=== PATIENT | female | born 1970 | race Caucasian/White ===

== ENCOUNTER 2018-11-01 21:00 | Emergency (ER) | payer BC ==
[~2018-11-01] VITALS: Ht 154.9 cm; Wt 60.3 kg
--- NOTE | 2018-11-01 21:42 | ED Abdominal Pain ---
General Chief Complaint: Abdominal/GI Problems Stated Complaint: ABD PAIN Nursing Triage Note: ABDOMINAL PAIN N/V Sepsis Screen: Possible Sepsis Risk Source of Information: Patient Exam Limitations: No Limitations History of Present Illness Date Seen by Provider: Nov 01, 2018 Time Seen by Provider: 21:40 Initial Comments To ER withm periumbilical abdominal pain. This began this morning when she went to work. She then ate some fruit and thought she might of had bad fruit because she began vomiting. She went home, and the abdominal pain increased. The periumbilical abdominal pain is now rated at 8 out of 10, the nausea and vomiting has been persistent since about 2 PM today. She is also not had a bowel movement in a couple of days. She is noted to be febrile at 100.7 on arrival and hypotensive at 91/69. History of cholecystectomy but no other abdominal operations. No known comorbidities. Timing/Duration: 12 Hours Severity/Quality: Moderate Location: Periumbilical Radiation: No Radiation Activities at Onset: None Associated Symptoms: Nausea/Vomiting Allergies and Home Medications Allergies Coded Allergies: No Allergy Information Available (Unverified , 05/12/15) Home Medications No Active Prescriptions or Reported Meds Patient Home Medication List Home Medication List Reviewed: Yes Review of Systems Review of Systems Constitutional: see HPI, chills, fever, malaise EENTM: No Symptoms Reported Respiratory: No Symptoms Reported Cardiovascular: No Symptoms Reported Gastrointestinal: See HPI, Abdominal Pain Genitourinary: No Symptoms Reported Musculoskeletal: no symptoms reported Skin: no symptoms reported Psychiatric/Neurological: No Symptoms Reported Endocrine: No Symptoms Reported Past Ceoxmqr-Noduqt-Tfkklb Hx Patient Social History Alcohol Use: Rarely Uses Recreational Drug Use: No Smoking Status: Never a Smoker 2nd Hand Smoke Exposure: No Recent Foreign Travel: No Contact w/Someone Who Travel: No Recent Infectious Disease Expo: No Recent Hopitalizations: No Immunizations Up To Date Tetanus Booster (TDap): Unknown Seasonal Allergies Seasonal Allergies: No Past Medical History Surgeries: Yes (LITHOTRIPSY, BUNIONECTOMY, NECK FUSION.) Abdominal, Gallbladder, Orthopedic Respiratory: No Cardiac: No Neurological: No : No PIG CASTER History: IUD Genitourinary: Yes Kidney Stones Gastrointestinal: No Musculoskeletal: No Endocrine: Yes Hypothyroidsim HEENT: No Cancer: No Psychosocial: No Integumentary: No Blood Disorders: No Physical Exam Vital Signs Vital Signs - First Documented 11/01/18 21:17 Temp 100.1 Pulse 117 Resp 18 B/P (MAP) 91/69 (76) Pulse Ox 97 O2 Delivery Room Air Capillary Refill : Less Than 3 Seconds Height/Weight/BMI Height: 5'1.00" Weight: 133lbs. oz. 60.555463ml; BMI Method:Stated General Appearance: WD/WN, no apparent distress HEENT: PERRL/EOMI, normal ENT inspection Neck: non-tender, full range of motion Respiratory: no respiratory distress, no accessory muscle use Cardiovascular: no murmur, tachycardia Gastrointestinal: normal bowel sounds, soft, tenderness (diffuse) Extremities: normal range of motion, non-tender Neurologic/Psychiatric: alert, normal mood/affect, oriented x 3 Skin: normal color, warm/dry Focused Exam Lactate Level 11/01/18 21:35: Lactic Acid Level 0.87 Lactic Acid Level Laboratory Tests Test 11/01/18 21:35 Lactic Acid Level 0.87 MMOL/L (0.50-2.00) Progress/Results/Core Measures Results/Orders Lab Results Laboratory Tests Test 11/01/18 21:22 11/01/18 21:35 Range/Units Urine Color YELLOW Urine Clarity CLEAR Urine pH 7 5-9 Urine Specific [place] 1.010 L 1.016-1.022 Urine Protein 1+ H NEGATIVE Urine Glucose (UA) NEGATIVE NEGATIVE Urine Ketones 4+ H NEGATIVE Urine Nitrite NEGATIVE NEGATIVE Urine Bilirubin 1+ H NEGATIVE Urine Urobilinogen 1 NORMAL MG/DL Urine Leukocyte Esterase 1+ H NEGATIVE Urine RBC (Auto) 1+ H NEGATIVE Urine RBC 2-5 H /HPF Urine WBC 2-5 /HPF Urine Squamous Epithelial Cells 5-10 /HPF Urine Crystals NONE /LPF Urine Bacteria TRACE /HPF Urine Casts NONE /LPF Urine Mucus LARGE H /LPF Urine Culture Indicated NO White Blood Count 15.8 H 4.3-11.0 10^3/uL Red Blood Count 4.85 4.35-5.85 10^6/uL Hemoglobin 15.2 11.5-16.0 G/DL Hematocrit 44 35-52 % Mean Corpuscular Volume 90 80-99 FL Mean Corpuscular Hemoglobin 31 25-34 PG Mean Corpuscular Hemoglobin Concent 35 32-36 G/DL Red Cell Distribution Width 13.7 10.0-14.5 % Platelet Count 234 130-400 10^3/uL Mean Platelet Volume 10.4 7.4-10.4 FL Neutrophils (%) (Auto) 93 H 42-75 % Lymphocytes (%) (Auto) 3 L 12-44 % Monocytes (%) (Auto) 4 0-12 % Eosinophils (%) (Auto) 0 0-10 % Basophils (%) (Auto) 0 0-10 % Neutrophils # (Auto) 14.6 H 1.8-7.8 X 10^3 Lymphocytes # (Auto) 0.5 L 1.0-4.0 X 10^3 Monocytes # (Auto) 0.6 0.0-1.0 X 10^3 Eosinophils # (Auto) 0.0 0.0-0.3 10^3/uL Basophils # (Auto) 0.0 0.0-0.1 10^3/uL Neutrophils % (Manual) 88 % Lymphocytes % (Manual) 8 % Monocytes % (Manual) 1 % Eosinophils % (Manual) 1 % Basophils % (Manual) 0 % Band Neutrophils 2 % Blood Morphology Comment NORMAL Sodium Level 141 135-145 MMOL/L Potassium Level 3.8 3.6-5.0 MMOL/L Chloride Level 106 98-107 MMOL/L Carbon Dioxide Level 23 21-32 MMOL/L Anion Gap 12 5-14 MMOL/L Blood Urea Nitrogen 17 7-18 MG/DL Creatinine 0.80 0.60-1.30 MG/DL Estimat Glomerular Filtration Rate > 60 BUN/Creatinine Ratio 21 Glucose Level 100 70-105 MG/DL Lactic Acid Level 0.87 0.50-2.00 MMOL/L Calcium Level 8.8 8.5-10.1 MG/DL Corrected Calcium 8.6 8.5-10.1 MG/DL Total Bilirubin 1.2 H 0.1-1.0 MG/DL Aspartate Amino Transf (AST/SGOT) 21 5-34 U/L Alanine Aminotransferase (ALT/SGPT) 17 0-55 U/L Alkaline Phosphatase 62 40-136 U/L Total Protein 7.2 6.4-8.2 GM/DL Albumin 4.3 3.2-4.5 GM/DL Lipase 12 8-78 U/L Serum Test, Qualitative NEGATIVE NEGATIVE Micro Results Microbiology 11/01/18 Influenza Types A,B Antigen ([facility]) - Final, Complete My Orders Orders - LANIE HODGE RN NEW GRAD Cbc With Automated Diff (11/01/18 21:30) Comprehensive Metabolic Panel (11/01/18 21:30) Ua Culture If Indicated (11/01/18 21:30) Iv Heplock-Insert (Order) (11/01/18 21:30) Lipase (11/01/18 21:30) Influenza A And B Antigens (11/01/18 21:30) Blood Culture (11/01/18 21:31) Lactic Acid Analyzer (11/01/18 21:31) Lactated Ringers (Lr 1000 Ml Iv Solution (11/01/18 21:45) Hcg,Qualitative Serum (11/01/18 21:36) Ondansetron Injection (Zofran Injectio (11/01/18 21:45) Fentanyl Injection (Sublimaze Injection (11/01/18 21:45) Ct Abdomen/Pelvis W (11/01/18 21:45) Manual Differential (11/01/18 21:35) Iohexol Injection (Omnipaque 350 Mg/Ml 1 (11/01/18 22:45) Received Contrast (Contrast Received) (11/01/18 22:45) Ns (Ivpb) (Sodium Chloride 0.9% Ivpb Bag (11/01/18 22:45) Ketorolac Injection (Toradol Injection) (11/01/18 23:00) Rx-Hydrocodone/Apap 5-325 Mg (Rx-Vicodin (11/01/18 23:00) Rx-Ondansetron Po (Rx-Zofran Po) (11/01/18 22:52) Rx-Tramadol Hcl (Rx-Ultram) (11/01/18 23:02) Rx-Tramadol Hcl (Rx-Ultram) (11/01/18 23:02) Medications Given in ED Current Medications Medications Dose Ordered Sig/Ronda Route Start Time Stop Time Status Last Admin Dose Admin Fentanyl Citrate 50 mcg ONCE ONCE IVP 11/01/18 21:45 11/01/18 21:46 DC 11/01/18 21:47 50 MCG Iohexol 100 ml ONCE ONCE IV 11/01/18 22:45 11/01/18 22:46 DC 11/01/18 22:37 100 ML Ketorolac Tromethamine 30 mg ONCE ONCE IVP 11/01/18 23:00 11/01/18 23:01 DC 11/01/18 22:59 30 MG Ondansetron HCl 8 mg ONCE ONCE IVP 11/01/18 21:45 11/01/18 21:46 DC 11/01/18 21:46 8 MG Sodium Chloride 100 ml ONCE ONCE IV 11/01/18 22:45 11/01/18 22:46 DC 11/01/18 22:37 80 ML Vital Signs/I&O 11/01/18 21:17 Temp 100.1 Pulse 117 Resp 18 B/P (MAP) 91/69 (76) Pulse Ox 97 O2 Delivery Room Air Blood Pressure Mean: 76 Departure Impression Primary Impression: Calculus of distal left ureter Disposition: HOME, SELF-CARE Condition: Stable Departure-Patient Inst. Decision time for Depature: 23:03 Referrals: ULI LEMON MD (PCP/Family) Primary Care Physician PARAMJIT BARFIELD MD Patient Instructions: Kidney Stones (DC) Add. Discharge Instructions: 1. Follow-up with Dr. Barfield take the pain medication antibiotics and nausea medication as directed. Return to ER for any fevers Or intolerable pains. Antibiotics as directed as well. All discharge instructions reviewed with patient and/or family. Voiced understanding. Scripts Sulfamethoxazole/Trimethoprim (Bactrim Ds Tablet) 1 Each Tablet 1 EACH PO BID, #10 TAB Prov: LANIE HODGE APRN 11/01/18 Tamsulosin HCl (Flomax) 0.4 Mg Cap 0.4 MG PO DAILY, #10 CAP Prov: LANIE HODGE APRN 11/01/18 Tramadol HCl (Ultram) 50 Mg Tablet 50 MG PO Q6H, #14 TAB Prov: LANIE HODGE APRN 11/01/18 Work/School Note: Work Release Form Date Seen in the Emergency Department: Nov 01, 2018 Return to Work: Nov 03, 2018 LANIE HODGE APRN Nov 01, 2018 21:42
[2018-11-01 21:45] VITALS: BP 117/82
[2018-11-01] MEDS ORDERED: fentaNYL INJECTION 100 MCG/2 ML AMP IVP ONE (21:45)
[2018-11-01] MEDS ORDERED: LACTATED RINGERS 1,000 ML IV SCH (21:45)
[2018-11-01] MEDS ORDERED: ONDANSETRON 4 MG/2 ML (SDV) Z0FRAN IVP ONE (21:45)
[2018-11-01 21:48] LABS: CLARITY,URINE CLEAR; COLOR,URINE YELLOW; GLUCOSE, URINE (UA) NEGATIVE (NEGATIVE); KETONES,URINE 4+ (NEGATIVE); LEUKOCYTE ESTERASE ,URINE 1+ (NEGATIVE); NITRITE,URINE NEGATIVE (NEGATIVE); PH,URINE 7 (5-9); PROTEIN,URINE 1+ (NEGATIVE); UROBILINOGEN,URINE 1 MG/DL (NORMAL)
[2018-11-01 21:48] LABS: BASOPHILS % (AUTO) 0 % (0-10); EOSINOPHILS % (AUTO) 0 % (0-10); HEMATOCRIT 44 % (35-52); HEMOGLOBIN 15.2 G/DL (11.5-16.0); LYMPHOCYTES # (AUTO) 0.5 X 10^3 (1.0-4.0); LYMPHOCYTES % (AUTO) 3 % (12-44); MEAN CORPUSCULAR HEMOGLOBIN 31 PG (25-34); MEAN CORPUSCULAR HGB CONC 35 G/DL (32-36); MEAN CORPUSCULAR VOLUME 90 FL (80-99); MEAN PLATELET VOLUME 10.4 FL (7.4-10.4); MONOCYTES # (AUTO) 0.6 X 10^3 (0.0-1.0); MONOCYTES % (AUTO) 4 % (0-12); NEUTROPHILS # (AUTO) 14.6 X 10^3 (1.8-7.8); NEUTROPHILS % (AUTO) 93 % (42-75); PLATELET COUNT 234 10^3/uL (130-400); RED CELL DISTRIBUTION WIDTH 13.7 % (10.0-14.5); WHITE BLOOD COUNT 15.8 10^3/uL (4.3-11.0)
[2018-11-01 22:00] LABS: BACTERIA,URINE TRACE /HPF; BILIRUBIN,URINE 1+ (NEGATIVE)
[2018-11-01 22:13] LABS: ALANINE AMINOTRANSFERASE 17 U/L (0-55); ALBUMIN 4.3 GM/DL (3.2-4.5); ALKALINE PHOSPHATASE 62 U/L (40-136); BILIRUBIN,TOTAL 1.2 MG/DL (0.1-1.0); BUN/CREATININE RATIO 21; CALCIUM 8.8 MG/DL (8.5-10.1); CARBON DIOXIDE 23 MMOL/L (21-32); CHLORIDE 106 MMOL/L (98-107); GFR ESTIMATED > 60; GLUCOSE 100 MG/DL (70-105); LIPASE 12 U/L (8-78); POTASSIUM 3.8 MMOL/L (3.6-5.0); SODIUM 141 MMOL/L (135-145); TOTAL PROTEIN 7.2 GM/DL (6.4-8.2)
[2018-11-01 22:14] LABS: BAND NEUTROPHILS 2 %; BASOPHILS % (MANUAL) 0 %; EOSINOPHILS % (MANUAL) 1 %; LYMPHOCYTES % (MANUAL) 8 %; MONOCYTES % (MANUAL) 1 %; NEUTROPHILS % (MANUAL) 88 %; RBC MORPH NORMAL
[2018-11-01] MEDS ORDERED: HOLD METFORMIN - RECEIVED CONTRAST 20 ML VIAL IV SCH (22:45)
[2018-11-01] MEDS ORDERED: IOHEXOL 350 MG/ML 100 ML (OMNIPAQUE 350) VIAL IV ONE (22:45)
[2018-11-01] MEDS ORDERED: NS 100 ML (IVPB) BAG IV ONE (22:45)
[2018-11-01] MEDS ORDERED: RX-ONDANSETRON 4 MG ODT (ZOFRAN) PPK #4 PO STA (22:52)
[2018-11-01] MEDS: RX-HYDROCODONE/APAP 5/325 MG #4 TAB PK PO PRN ×2 (22:58→23:08)
[2018-11-01] MEDS ORDERED: KETOROLAC 30 MG/ML VIAL IVP ONE (23:00)
[2018-11-01] MEDS ORDERED: RX-TRAMADOL 50 MG (ULTRAM) TAB PPK#4 PO ONE (23:02)
[2018-11-01] MEDS ORDERED: RX-TRAMADOL 50 MG (ULTRAM) TAB PPK#4 PO STA (23:02)
[2018-11-01] MEDS ORDERED: TRAM-42 PO (23:08)
[2018-11-01] MEDS ORDERED: SULF1TAB35 PO (23:08)
[2018-11-01] MEDS ORDERED: TAMS0.4C98 PO (23:08)
[2018-11-01 23:20] VITALS: BP 117/82
--- NOTE | 2018-11-02 08:08 | Diagnostic Imaging Report ---
PROCEDURE: CT abdomen and pelvis with contrast. TECHNIQUE: Multiple contiguous axial images were obtained through the abdomen and pelvis after administration of intravenous contrast. INDICATION: Abdominal pain with nausea and vomiting for one day. Comparison is made with prior CT from 04/08/2007. The lung bases are clear. No discrete liver mass is identified. The gallbladder is surgically absent. No biliary duct dilatation is seen. The pancreas and spleen are unremarkable. No adrenal mass is identified. There is a small approximately 3-4 mm nonobstructing calculus lower pole left kidney. Right kidney is unremarkable. There is also approximately 3-4 mm calculus in the distal left ureter approximately 2 cm proximal to the UVJ. No significant hydronephrosis is identified. The right ureter is unremarkable. Aorta is non-aneurysmal. The small and large bowel loops are normal caliber. No obstruction is seen. There is no ascites. There is an IUD within the uterus. There is a cyst in the left adnexa approximately 4.5 x 3.4 cm. IMPRESSION: 1. A 4 mm nonobstructing left lower pole renal calculus. In addition, there is a 4 mm distal left ureteric calculus just above the UVJ. No significant hydronephrosis is seen. 2. Left ovarian cyst. Dictated by: Dictated on workstation # [id number]
== END 2018-11-01 23:26 | disposition home or self-care (01) ==
LOC: EDUNIT# 21:00 → ER 21:01
DX: N20.1 Calculus of ureter (principal); Z90.49 Acquired absence of other specified parts of digestive tract; Z98.1 Arthrodesis status; Z98.890 Other specified postprocedural states; Z97.5 Presence of (intrauterine) contraceptive device; Z87.442 Personal history of urinary calculi
CPT/HCPCS: 36415; 74177; 80053; 81000; 83605; 83690; 84703; 85007; 85027; 87040; 87804

== ENCOUNTER → 2018-11-05 | Outpatient (CLI) | payer BC ==
[~2018-11-05] MED LIST: SULF1TAB35 PO; TAMS0.4C98 PO; TRAM-42 PO
--- NOTE | 2018-11-05 16:34 | Diagnostic Imaging Report ---
INDICATION: Follow up kidney stones. COMPARISON: CT dated 11/01/2018. FINDINGS: Single supine radiographic view of the abdomen was obtained and demonstrates nondistended loops of small bowel. Small extraosseous calcification is noted projecting over the inferior pole of the left kidney. There is punctate calcification in the left hemipelvis, which may correspond to ureteral calculus described on previous CT. Indwelling intrauterine contraceptive device is noted. No other unexpected radiopaque foreign bodies are seen. Small bowel loops are nondistended. There is no large collection of intraperitoneal air. Bony structures show no gross acute abnormalities. IMPRESSION: 1. Left-sided nephrolithiasis. 2. Faint calculus projecting over the left hemipelvis, which again likely corresponds to previously described distal left ureteral calculus. 3. Nonobstructive small bowel gas pattern. Dictated by: Dictated on workstation # [id number]
== END ==
LOC: RAD 12:42
PROVIDERS: ATTEND Urology
DX: N20.2 Calculus of kidney with calculus of ureter (principal); Z97.5 Presence of (intrauterine) contraceptive device
CPT/HCPCS: 74018

== ENCOUNTER 2018-11-13 06:29 | Outpatient (CLI) | payer BC ==
[~2018-11-13] VITALS: Ht 154.9 cm; Wt 60.3 kg
[2018-11-14] MEDS ORDERED: TAMS0.4C98 PO (09:30)
[2018-11-14] MEDS ORDERED: TRAM50TA2 PO (09:30)
[2018-11-14] MEDS ORDERED: NITR-65 PO (09:30)
== END 2018-11-13 15:22 | disposition home or self-care (01) ==
LOC: PREOP 06:29
PROVIDERS: ATTEND Urology
DX: Z01.818 Encounter for other preprocedural examination (principal)

== ENCOUNTER 2018-11-14 05:58 | Day surgery (SDC) | payer BC ==
[~2018-11-14] VITALS: Ht 154.9 cm; Wt 60.3 kg
[2018-11-14] MEDS ORDERED: cefTRIAXone FOR IV USE 1,000 MG in WATER (STERILE) FOR INJECTION 10 ML IV ONE (06:15)
[2018-11-14 06:20] VITALS: BP 117/91
[2018-11-14] MEDS ORDERED: CATHETER FLUSH 10 ML SYR IV PRN (06:30)
[2018-11-14] MEDS: LACTATED RINGERS 1,000 ML IV PRN ×2 (06:44→08:00)
[2018-11-14] MEDS ORDERED: GLYCOPYRROLATE 0.2 MG/ML (ROBINUL) 2 ML VIAL ONE (06:57)
[2018-11-14] MEDS ORDERED: ROCURONIUM 10 MG/ML 5 ML SYRINGE IV ONE (06:57)
[2018-11-14] MEDS ORDERED: DEXAMETHASONE 10 MG/ML (DECADRON) 1 ML VIAL ONE (06:57)
[2018-11-14] MEDS ORDERED: LIDOCAINE PF 2% 5 ML (XYLOCAINE) VIAL ONE (06:57)
[2018-11-14] MEDS ORDERED: ONDANSETRON 4 MG/2 ML (SDV) Z0FRAN ONE (06:57)
[2018-11-14] MEDS ORDERED: SEVOFLURANE (ULTANE) 15 ML INHAL SOLN ONE (06:57)
[2018-11-14] MEDS ORDERED: NEOSTIGMINE 1 MG/ML 5 ML SYRINGE ONE (06:57)
[2018-11-14] MEDS ORDERED: proPOfol 200 MG/20 ML (DIPRIVAN) VIAL IV ONE (06:57)
[2018-11-14] MEDS ORDERED: fentaNYL INJECTION 100 MCG/2 ML AMP ONE (06:57)
[2018-11-14] MEDS ORDERED: MIDAZOLAM 2 MG/2 ML (VERSED) VIAL ONE (06:58)
--- NOTE | 2018-11-14 07:02 | Progress Note-Pre Operative ---
Pre-Operative Progress Note H&P Reviewed The H&P was reviewed, patient examined and no changes noted. Date Seen by Provider: Nov 14, 2018 Time Seen by Provider: 07:02 Date H&P Reviewed: Nov 14, 2018 Time H&P Reviewed: 07:02 Pre-Operative Diagnosis: LT DISTAL URETERAL AND RENAL STONES PARAMJIT BARFIELD MD Nov 14, 2018 07:02
--- NOTE | 2018-11-14 07:52 | Diagnostic Imaging Report ---
INDICATION: ESWL, left renal stone FINDINGS: Supine view of the abdomen demonstrates small linear calcification overlying the lower pole of the left kidney which is unchanged. A punctate calcification in the left side of the pelvis is stable. Also small calcification right side of the pelvis which are probably phleboliths. An IUD is present. The bowel gas pattern appears unremarkable. IMPRESSION: Small calcifications appear stable from the previous exam. Dictated by: Dictated on workstation # [id number]
[2018-11-14] MEDS ORDERED: KETOROLAC 30 MG/ML VIAL ONE (08:00)
[2018-11-14] MEDS ORDERED: FUROSEMIDE 40 MG/4 ML INJ (LASIX) ONE (08:00)
--- NOTE | 2018-11-14 08:01 | Progress Note-Post Operative ---
Post-Operative Progess Note Surgeon (s)/Shovel Mechanic (s) Surgeon PARAMJIT BARFIELD MD Shovel Mechanic: NONE Pre-Operative Diagnosis LT DISTAL URETERAL AND RENAL STONES Post-Operative Diagnosis SAME Procedure & Operative Findings Date of Procedure 11/14/18 Procedure Performed/Findings LT URETEROSCOPY WITH STONE BASKET AND LT ESWL Anesthesia Type GENERAL Estimated Blood Loss Estimated blood loss (mL): NONE Specimens/Packing Specimens Removed LT URETERAL STONE FOR ANALYSIS Packing: NONE PARAMJIT BARFIELD MD Nov 14, 2018 08:00
--- NOTE | 2018-11-14 08:03 | Discharge Inst-Urology ---
Discharge Inst-Urology Discharge Medications New, Converted, or Re-newed RX: RX on Chart Patient Instructions/Follow Up Plan Please make appointment to been seen in office in 2 weeks. KUB prior to it KUB on way home Post ESWL instructions Please schedule O.P Parathyroid scan Stone for analysis post seen by patient Increase oral fluids for 48 hours and then as needed. Diet and Activity as tolerated. If questions or concerns contact your physician Or seek help at emergency department. PARAMJIT BARFIELD MD Nov 14, 2018 08:03
[2018-11-14] MEDS ORDERED: ONDANSETRON 4 MG/2 ML (SDV) Z0FRAN IVP PRN (08:30)
[2018-11-14] MEDS ORDERED: morphine INJ 10 MG/ML 1ML (SYR OR VIAL) IVP ONE (08:30)
[2018-11-14] MEDS ORDERED: morphine INJ 10 MG/ML 1ML (SYR OR VIAL) ONE (09:00)
[2018-11-14] MEDS ORDERED: TAMS0.4C98 PO (09:30)
[2018-11-14] MEDS ORDERED: NITR-65 PO (09:30)
[2018-11-14] MEDS ORDERED: TRAM50TA2 PO (09:30)
[2018-11-14 09:35] VITALS: BP 121/89
[2018-11-14 10:05] VITALS: BP 115/81
[2018-11-14 10:25] VITALS: BP 115/81
[2018-11-14 10:35] VITALS: BP 116/82
--- NOTE | 2018-11-14 11:35 | OPERATIVE REPORT ---
DATE OF SERVICE: 11/14/2018 PREOPERATIVE DIAGNOSES: 1. Left distal ureteral stone. 2. Left renal stone. POSTOPERATIVE DIAGNOSES: 1. Left distal ureteral stone. 2. Left renal stone. OPERATION PERFORMED: Left ureteroscopy with stone basket and left ESWL. SURGEON: Ta Barfield MD ANESTHESIA: General. COMPLICATIONS: None. DESCRIPTION OF PROCEDURE: Under satisfactory general anesthesia, the patient in lithotomy position, genitalia were prepped and draped in the usual sterile fashion. The cystoscope was introduced under vision. The bladder was normal except sluggish efflux on the left side. Using the foroblique lens, I dilated the left ureteral orifice and terminal portion to accommodate a 6.9-Tajik semirigid ureteroscope and visualized the stone at the expected location. It was amenable to basket and floating type stones, so I did not want to do lithotripsy and run the risk of losing the stone more proximally. So, I engaged it with a 3-Tajik Fernandez basket and extracted it completely. I went back with ureteroscope beyond the stone to confirm the integrity of the ureter and no further fragments of stones. I removed the ureteroscope, reinserted the cystoscope to empty the bladder and then we moved the patient to the ESWL suite. On the ESWL table, the left renal stones were localized and shocks were delivered at a kV of 4. A total of 2000 shocks completely disappeared the stones. The patient received 40 mg of Lasix and 30 mg of Toradol IV at the end of the procedure. She tolerated the procedure and anesthesia well and was sent to recovery room in stable condition. Job ID: [id number] DocumentID: [id number] Dictated Date: 11/14/2018 08:16:45 Licensed Sales Assistant Date: 11/14/2018 11:34:13 Dictated By: TA BARFIELD MD
--- NOTE | 2018-11-14 13:32 | Anesthesia-General Post-Op ---
General Patient Condition Mental Status/LOC: Same as Preop Cardiovascular: Satisfactory Nausea/Vomiting: Absent Respiratory: Satisfactory Pain: Controlled Complications: Absent Post Op Complications Complications None Follow Up Care/Instructions Patient Instructions None needed. Anesthesia/Patient Condition Patient Condition Patient is doing well, no complaints, stable vital signs, no apparent adverse anesthesia problems. No complications reported per nursing. OSMANY CASE CRNA Nov 14, 2018 13:32
--- NOTE | 2018-11-14 14:26 | Diagnostic Imaging Report ---
INDICATION: Status post left-sided ESWL. COMPARISON: Earlier same day. FINDINGS: Two supine radiographic views of the abdomen were obtained. Again identified is small calculus projecting over the inferior pole of the left kidney. Multiple small extraosseous calcifications are also again identified projecting over the bilateral hemipelvis. Small distal ureteral calculi versus small phleboliths are indeterminate. The indwelling intrauterine contraceptive device is also again identified. No unexpected radiopaque foreign bodies are seen. Small bowel loops are nondistended. There is no large collection of free intraperitoneal air. IMPRESSION: 1. Redemonstration of stable-appearing left-sided nephrolithiasis. 2. Small bilateral extraosseous calcifications projecting over the pelvis. Again, the distal ureteral calculi versus phleboliths are indeterminate. Dictated by: Dictated on workstation # [id number]
== END 2018-11-14 10:30 | disposition home or self-care (01) ==
LOC: SDC 05:58
PROVIDERS: ATTEND Urology
DX: N20.2 Calculus of kidney with calculus of ureter (principal); Z11.2 Encounter for screening for other bacterial diseases
CPT/HCPCS: 74018; 84703; 87081

== ENCOUNTER → 2018-11-19 | Outpatient (CLI) | payer BC ==
[~2018-11-19] MED LIST changes: +NITR-65 PO; +TRAM50TA2 PO
--- NOTE | 2018-11-19 19:07 | Diagnostic Imaging Report ---
INDICATION: Hyperparathyroidism. TECHNIQUE: Patient was administered 20.2 mCi technetium 99m sestamibi intravenously and imaging over the neck and upper chest was performed at 20 minutes and [address] imaging was also performed. FINDINGS: Initial images demonstrate normal physiologic activity within the salivary glands. There is uptake in both lobes of the thyroid gland. Delayed imaging demonstrates clearing of activity from both lobes of the thyroid gland. No abnormal focus of tracer accumulation is seen to suggest parathyroid adenoma. IMPRESSION: Unremarkable parathyroid scan. Dictated by: Dictated on workstation # [id number]
== END ==
LOC: CARD 12:28
PROVIDERS: ATTEND Urology
DX: E21.3 Hyperparathyroidism, unspecified (principal)
CPT/HCPCS: 78072

== ENCOUNTER → 2019-02-01 | Outpatient (CLI) | payer BC ==
--- NOTE | 2019-02-04 10:00 | Diagnostic Imaging Report ---
Indication: Routine screening. Comparison is made with prior mammogram from 01/25/2017 and 09/05/2008. 2-D and 3-D bilateral screening mammography was performed with CAD. Both breasts are heterogeneously dense, limiting the sensitivity of mammography. Nodular densities in both breasts appear stable and likely benign. No dominant mass or malignant appearing microcalcifications are seen. There are calcifications bilaterally. Axillae are unremarkable. Impression: BI-RADS category 2 No mammographic features suspicious for malignancy are identified. ACR BI-RADS Category 2: Benign findings. Result letter will be mailed to the patient. Note: At least 10% of breast cancer is not imaged by mammography. Dictated by: Dictated on workstation # [id number]
== END ==
LOC: RAD 08:35
PROVIDERS: ATTEND Obstetrics & Gynecology
DX: Z12.31 Encounter for screening mammogram for malignant neoplasm of breast (principal)
CPT/HCPCS: 77067

== ENCOUNTER → 2020-02-25 | Outpatient (CLI) | payer BC ==
[~2020-02-25] MED LIST changes: -TAMS0.4C98 PO; +TMSL.4C PO; -TRAM50TA2 PO; +TRM50T PO
--- NOTE | 2020-02-25 12:40 | Diagnostic Imaging Report ---
INDICATION: Routine screening. Comparison is made with prior mammogram from 02/01/2019 and 01/25/2017. 2-D and 3-D bilateral screening mammography was performed with CAD. Both breasts are heterogeneously dense, limiting the sensitivity of mammography. A circumscribed density in the medial left breast mid depth is noted. This has been present on prior mammograms and most likely represents a small cyst. No spiculated mass or malignant appearing microcalcifications are seen. Axillae are unremarkable. IMPRESSION: BI-RADS Category 2 No mammographic features suspicious for malignancy are identified. ACR BI-RADS Category 2: Benign findings. Result letter will be mailed to the patient. Note: At least 10% of breast cancer is not imaged by mammography. Dictated by: Dictated on workstation # [id number]
== END ==
LOC: RAD 07:36
PROVIDERS: ATTEND Family Medicine
DX: Z12.31 Encounter for screening mammogram for malignant neoplasm of breast (principal)
CPT/HCPCS: 77063; 77067

== ENCOUNTER → 2021-03-02 | Outpatient (CLI) | payer BC ==
[~2021-03-02] MED LIST changes: -SULF1TAB35 PO; +SULF1TAB38 PO
--- NOTE | 2021-03-02 12:31 | Diagnostic Imaging Report ---
INDICATION: Routine screening. COMPARISON: 02/25/2020 and 02/01/2019. TECHNIQUE: 2D and 3D bilateral screening mammography was performed with CAD. FINDINGS: Both breasts are heterogeneously dense, limiting the sensitivity of mammography. The parenchymal pattern is stable. No dominant mass or malignant appearing microcalcifications are seen. The axillae are unremarkable. There are benign calcifications. IMPRESSION: No mammographic features suspicious for malignancy are identified. ACR BI-RADS Category 2: Benign findings. Result letter will be mailed to the patient. Note: At least 10% of breast cancer is not imaged by mammography. Dictated by: Dictated on workstation # [id number]
--- NOTE | 2021-03-02 13:28 | Diagnostic Imaging Report ---
PROCEDURE: Pelvic comp/transvaginal sonogram. TECHNIQUE: Complete transabdominal and transvaginal pelvic ultrasound was performed. In addition, limited pelvic Doppler was performed. INDICATION: Ovarian cyst. Uterus is anteverted measuring 8.4 x 4.4 x 5.1 cm. Endometrium is 8 mm in thickness. There appears to be an IUD centered within the endometrial canal. There appears to be an anterior fibroid measuring approximately 1.7 x 1.4 cm. Right ovary measures 2.2 x 1.4 x 1.6 cm and left ovary measures 5.5 x 3.5 x 3.5 cm. Left ovary does contain a 3.9 x 2.2 x 3.4 cm cyst which does show some complexity. There is blood flow to both ovaries. Small amount of free pelvic fluid is noted. IMPRESSION: 1. IUD appropriately centered in the endometrial canal. 2. Small uterine fibroid. 3. A 3.9 cm complex left ovarian cyst. Follow-up in 6-8 weeks is recommended to confirm clearing. Dictated by: Dictated on workstation # [id number]
== END ==
LOC: RAD 11:30
PROVIDERS: ATTEND Obstetrics & Gynecology
DX: Z12.31 Encounter for screening mammogram for malignant neoplasm of breast (principal); N83.201 Unspecified ovarian cyst, right side; N83.202 Unspecified ovarian cyst, left side; D25.9 Leiomyoma of uterus, unspecified; Z97.5 Presence of (intrauterine) contraceptive device
CPT/HCPCS: 76830; 76856; 77063; 77067

== ENCOUNTER → 2021-05-03 | Outpatient (CLI) | payer BC ==
--- NOTE | 2021-05-03 11:36 | Diagnostic Imaging Report ---
PROCEDURE: US Non-ob pelvis comp/trans. TECHNIQUE: Multiple realtime grayscale images were obtained of the pelvis in various projections endovaginally. Transabdominal imaging was also performed. INDICATION: Left ovarian cyst followup. Comparison is made with a prior study from 03/02/2021. Uterus measures 9 x 5 x 5 cm. The endometrium measures 3 mm. The right ovary measures 2.5 x 1.9 cm. Left ovary measures 6.8 x 4.3 cm. Endometrium and myometrium appear normal. There is an IUD in the uterus which appears to be in satisfactory position. There is blood flow to the ovaries. There are 2 cysts on the left ovary. There is a 3.0 x 3.2 cm cyst and a 2.1 x 2.3 cm cyst. No solid mass is seen. There is no right adnexal mass. There is no free fluid. IMPRESSION: Today's study shows what appears to be 2 adjacent simple cysts with no solid component evident. A single septated cyst is a possibility. Followup may be helpful. Dictated by: Dictated on workstation # [id number]
== END ==
LOC: RAD 09:32
PROVIDERS: ATTEND Obstetrics & Gynecology
DX: N83.202 Unspecified ovarian cyst, left side (principal); Z97.5 Presence of (intrauterine) contraceptive device
CPT/HCPCS: 76830; 76856

== ENCOUNTER → 2021-08-02 | Outpatient (CLI) | payer BC ==
--- NOTE | 2021-08-02 11:09 | Diagnostic Imaging Report ---
PROCEDURE: Pelvic comp/transvaginal sonogram. TECHNIQUE: Complete transabdominal and transvaginal pelvic ultrasound was performed. In addition, limited pelvic Doppler was performed. INDICATION: Left ovarian cyst. COMPARISON: 05/03/2021. FINDINGS: The uterus is anteverted measuring 8.7 x 5.6 x 4.5 cm. No discrete myometrial mass is identified. The IUD appears to be unchanged in position in the mid endometrium. The right ovary measures 2.4 x 2.2 x 2.6 cm and the left ovary measures 3.6 x 1.9 x 3.1 cm. The left ovary does contain a 2.5 x 1.8 x 1.9 cm cyst with internal echoes, suggestive of a hemorrhagic cyst. There is blood flow to both ovaries. IMPRESSION: 1. The IUD remains within the endometrial canal. 2. There is a 2.5 cm hemorrhagic left ovarian cyst. Dictated by: Dictated on workstation # [id number]
== END ==
LOC: RAD 10:00
PROVIDERS: ATTEND Obstetrics & Gynecology
DX: N83.202 Unspecified ovarian cyst, left side (principal); Z97.5 Presence of (intrauterine) contraceptive device
CPT/HCPCS: 76830; 76856